=== PATIENT | female | born 1930 | race Caucasian/White ===

== ENCOUNTER 2019-01-09 06:39 | Day surgery (SDC) | payer MEDICARE, OTHER ==
[2019-01-09] MEDS ORDERED: Sodium Chloride 0.9% 10 ML Syringe FLUSH PRN (07:00)
[2019-01-09 10:35] VITALS: BP 122/81; PULSE 83
--- NOTE | 2019-01-09 12:19 | OR ---
DATE OF PROCEDURE: 01/09/2019 SURGEON: Gabriella Calzada MD POSTOPERATIVE CARE: Postoperative care will be provided mainly at the [address] [place] [address] [facility] in conjunction with [facility]. PREOPERATIVE DIAGNOSIS: Cataract, left eye. POSTOPERATIVE DIAGNOSIS: Cataract, left eye. PROCEDURE: Phacoemulsification with intraocular lens placement, left eye. ANESTHESIA: Topical and intracameral. ESTIMATED BLOOD LOSS: Minimal. COMPLICATIONS: None. PATHOLOGY SPECIMENS: None. SURGICAL FINDINGS: None. INDICATION FOR PROCEDURE: The patient is an 88-year-old female with history of a visually significant cataract in the left eye, which interfered with activities of daily living. This consisted of a nuclear sclerosis cataract. Following careful discussion of the risks, benefits and alternatives to cataract extraction with intraocular lens placement including blindness and , the patient elected to proceed, and informed, written consent was obtained prior to the procedure. DESCRIPTION OF THE PROCEDURE: The patient was previously identified, and a marina placed above the left eye. All sources, including the patient, indicated that the left eye was the correct eye. The patient was subsequently taken to the operating room where standard monitors were applied. The patient was then prepped and draped in the usual sterile fashion for ophthalmic surgery. Attention was first directed at the 12 o'clock position where a paracentesis port was fashioned. Shugar solution followed by Viscoat was instilled into the eye. Attention was then directed to the 8:30 position where a triplanar incision was made in a near-clear manner using a keratome. A continuous capsulorrhexis was then made using a combination of the cystotome and Utrata forceps. Hydrodissection was achieved using a balanced salt solution, and the lens rotated nicely. Phacoemulsification was then done using a modified [id number] technique without complication. Phaco time was 8.49 CDE. The remaining cortex was removed using the irrigation/aspiration handpiece. Provisc was then instilled into the eye. A Technis lens, model [id number], at 21.0 diopters was then placed in the capsular bag using an [place] injector. The remaining viscoelastic was removed using the irrigation/aspiration forceps. All wounds were then checked and found to be watertight. The lid speculum and drapes were removed. Maxitrol ointment was placed in the patient's left eye, and the eye was shielded. The patient tolerated the procedure well. The patient was instructed to follow up tomorrow. All needle and sponge counts were correct at the end of the procedure. Gabriella Calzada MD /[id number]
== END 2019-01-09 08:30 | disposition home or self-care (01) ==
LOC: JP.SDS 06:39
PROVIDERS: ATTEND Ophthalmology
DX: H25.12 Age-related nuclear cataract, left eye (principal); K21.9 Gastro-esophageal reflux disease without esophagitis; E66.9 Obesity, unspecified; Z68.41 Body mass index [BMI] 40.0-44.9, adult
CPT/HCPCS: 66984; V2632

== ENCOUNTER 2019-11-29 14:04 | Emergency (ER) | payer MEDICARE, OTHER ==
[2019-11-29 15:44] VITALS: BP 148/79; PULSE 103
--- NOTE | 2019-11-29 17:11 | EDM.PDOC ---
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 Her primary provider has tried several courses of antibiotics, Unna boots, several ultrasounds have been done, and she recently took a course of Zithromax. She was at a today and her friend saw her leg and brought her to the emergency room. No fevers or chills. No significant pain. Onset: Gradual Duration: Chronic (Symptoms have been present for at least 6 months) Location: Reports: Lower Extremity, Right Associated Symptoms: Denies: Chest Pain, Fever/Chills, Nausea/Vomiting, Shortness of Breath - Related Data Allergies Allergy/AdvReac Type Severity Reaction Status Date / Time No Known Allergies Allergy Verified 11/29/19 15:43 Home Meds: Home Meds Aspirin [Adult Low Dose Aspirin EC] 81 mg PO DAILY 03/06/14 [History] Famotidine [Pepcid] 20 mg PO DAILY 03/06/14 [History] Levothyroxine [Synthroid] 75 mcg PO DAILY 03/06/14 [History] Potassium 99 mg PO DAILY 03/06/14 [History] Acetaminophen [Tylenol] 650 mg PO Q6H PRN #100 tablet 03/25/14 [Rx] Sly Cit/D3/K/Mag Ox/Stron/Bor [Theracal D2000] 1 each PO DAILY 01/07/19 [History] Vit A/C/E AC/Znox/Cupric Oxide [Eye Vitamin-Minerals Tablet] 1 each PO DAILY 01/07/19 [History] Lutein [Natural Lutein] 20 mg PO BID 01/28/19 [History] Past Medical History HEENT History: Reports: Cataract, Impaired Vision Cardiovascular History: Reports: High Cholesterol, SOB on Exertion Respiratory History: Reports: SOB Gastrointestinal History: Reports: Colon Polyp, Diverticulosis, Gastritis, GERD, Hiatal Hernia, Other (See Below) Other Gastrointestinal History: barretts esophagus Genitourinary History: Reports: Urinary Incontinence Musculoskeletal History: Reports: Back Pain, Chronic, Osteoarthritis Endocrine/Metabolic History: Reports: Hypothyroidism, Obesity/BMI 30+ Oncologic (Cancer) History: Reports: Breast Dermatologic History: Reports: None - Infectious Disease History Infectious Disease History: Reports: Chicken Pox, Measles - Past Surgical History HEENT Surgical History: Reports: Cataract Surgery Cardiovascular Surgical History: Reports: None Respiratory Surgical History: Reports: None GI Surgical History: Reports: Colonoscopy, EGD Female Surgical History: Reports: Breast Biopsy, D&C, Mastectomy Endocrine Surgical History: Reports: None Musculoskeletal Surgical History: Reports: None Oncologic Surgical History: Reports: Biopsy of Breast, Mastectomy Dermatological Surgical History: Reports: Skin Biopsy Social & Family History - Tobacco Use Smoking Status *Q: Never Smoker - Caffeine Use Caffeine Use: Reports: None - Recreational Drug Use Recreational Drug Use: No Review of Systems - Review of Systems Review Of Systems: See Below Constitutional: Denies: Fever Respiratory: Denies: Shortness of Breath Cardiovascular: Denies: Chest Pain Neurological: Denies: Headache ED EXAM, GENERAL - Physical Exam Exam: See Below Exam Limited By: No Limitations General Appearance: Alert, No Apparent Distress Respiratory/Chest: No Respiratory Distress Cardiovascular: Regular Rate, Rhythm GI/Abdominal: Soft, Non-Tender Extremities: Other (Exam is otherwise limited to the right lower extremity where she has erythematous somewhat leathery skin distal to the knee, erythema and mild tenderness. It is not significantly warm. She has a very palpable dorsalis pedis pulse. There is a very small amount of serous drainage through a small shallow wound on the anterior leg, it is not purulent or malodorous) Neurological: Alert, Normal Reflexes Course - Vital Signs Last Recorded V/S: Last Vital Signs Temp 98.4 F 11/29/19 15:37 Pulse 103 H 11/29/19 15:37 Resp 20 11/29/19 15:37 BP 148/79 H 11/29/19 15:37 Pulse Ox 95 11/29/19 15:37 - Re-Assessments/Exams Free Text/Narrative Re-Assessment/Exam: 11/30/19 08:00 [address]iscuss[address] her condition with Dr. Pierre Fuentes, and we applied a medicated Unna boot to the right lower leg. She will recheck with Dr. Fuentes in the next 3 to 4 days Departure - Departure Time of Disposition: 17:20 Disposition: Home, Self-Care 01 Clinical Impression: Cellulitis of right lower leg - Discharge Information Instructions: Cellulitis, Adult Referrals: Ar Mayen NP [Primary Care Provider] - Forms: ED Department Discharge Care Plan Goals: Continue your current medications, leave Unna boot on until rechecked by Dr. Fuentes on Sunday or Sunday next week. Elevate leg if able. Sepsis Event Note (ED) - Evaluation Sepsis Screening Result: No Definite Risk
== END 2019-11-29 17:21 | disposition home or self-care (01) ==
LOC: JP.ED 14:04
DX: L03.115 Cellulitis of right lower limb (principal); E78.00 Pure hypercholesterolemia, unspecified; M19.90 Unspecified osteoarthritis, unspecified site; E03.9 Hypothyroidism, unspecified; E66.9 Obesity, unspecified; K21.9 Gastro-esophageal reflux disease without esophagitis; Z68.39 Body mass index [BMI] 39.0-39.9, adult; Z79.82 Long term (current) use of aspirin; Z79.899 Other long term (current) drug therapy
CPT/HCPCS: 99283